=== PATIENT | male | born 1990 | race Caucasian/White ===

== ENCOUNTER 2018-01-05 03:03 | Emergency (ER) | payer OTHER ==
[~2018-01-05] VITALS: Ht 172.7 cm; Wt 75.0 kg
[2018-01-05 03:04] VITALS: BP 134/71
[2018-01-05] MEDS ORDERED: CefTRIAXone SODIUM 1 GM/VIAL IM ONE (03:45)
[2018-01-05] MEDS ORDERED: AZITHROMYCIN 250 MG TABLET PO ONE (03:45)
== END 2018-01-05 04:01 | disposition home or self-care (01) ==
LOC: EMS 03:04
DX: N34.2 Other urethritis (principal)
CPT/HCPCS: 96372; 99283; J0696